=== PATIENT | male | born 1970 | race Hispanic/Latino ===

== ENCOUNTER 2019-01-09 04:59 | Emergency (ER) | payer SELFPAY ==
[~2019-01-09] VITALS: Ht 162.6 cm; Wt 65.8 kg
[2019-01-09 05:45] LABS: BASOPHILS # (AUTO) 0.1 (0.0-0.1); BASOPHILS % 0.7 % (0.0-1.0); EOSINOPHILS % 0.5 % (0.0-6.0); HEMATOCRIT 45.9 % (38.2-49.6); HEMOGLOBIN 15.7 g/dL (14.0-18.0); LYMPHOCYTES # (AUTO) 1.2 (1.0-3.2); LYMPHOCYTES % 13.4 % (18.0-39.1); MEAN CORPUSCULAR HEMOGLOBIN 30.9 pg (28-32); MEAN CORPUSCULAR HGB CONC 34.2 g/dL (31-35); MEAN CORPUSCULAR VOLUME 90.4 fL (81-99); MONOCYTES # (AUTO) 0.4 (0.2-0.8); MONOCYTES % 4.5 % (4.4-11.3); NEUTROPHILS # (AUTO) 6.9 (2.1-6.9); NEUTROPHILS % 80.6 % (38.7-80.0); PLATELET COUNT 263 x10e3/uL (140-360); RED BLOOD COUNT 5.08 x10e6/uL (4.3-5.7)
[2019-01-09 05:50] LABS: BILIRUBIN,URINE NEGATIVE (NEGATIVE); CLARITY,URINE CLEAR (CLEAR); COLOR,URINE YELLOW (YELLOW); KETONES,URINE NEGATIVE (NEGATIVE); LEUKOCYTE ESTERASE ,URINE NEGATIVE (NEGATIVE); NITRITE,URINE NEGATIVE (NEGATIVE); PROTEIN,URINE DIPSTICK NEGATIVE (NEGATIVE); URINE UROBILINOGEN 0.2 mg/dL (0.2 - 1)
[2019-01-09] MEDS ORDERED: ONDANSETRON HCL INJ 2MG/ML 2ML 2 MG/ML VIAL IV STA (05:50)
[2019-01-09] MEDS ORDERED: DICYCLOMINE HCL 20 MG/2 ML VIAL IM ONE (06:00)
[2019-01-09 06:11] LABS: ALANINE AMINOTRANSFERASE 35 IU/L (0-55); ALBUMIN 4.3 g/dL (3.5-5.0); ALBUMIN/GLOBULIN RATIO 1.2 (0.8-2.0); ALKALINE PHOSPHATASE 76 IU/L (40-150); ANION GAP 9.6 mmol/L (8-16); BLOOD UREA NITROGEN 19 mg/dL (7-26); BUN/CREATININE RATIO 19 (6-25); CALCIUM 9.6 mg/dL (8.4-10.2); CARBON DIOXIDE 27 mmol/L (22-29); CHLORIDE 102 mmol/L (98-107); CREATININE, SERUM 1.02 mg/dL (0.72-1.25); EST GLOMERULAR FILTRATION RATE > 60 ML/MIN (60-); GLUCOSE 138 mg/dL (74-118); POTASSIUM 3.6 mmol/L (3.5-5.1); SODIUM 135 mmol/L (136-145)
[2019-01-09 06:12] LABS: AMYLASE 86 U/L (25-125); LIPASE 31 U/L (8-78)
[2019-01-09 06:29] LABS: BACTERIA,URINE FEW /HPF; EPITHELIAL CELLS,URINE FEW /LPF; WBC,URINE (MAN) 0-5 /HPF (0-5)
--- NOTE | 2019-01-09 06:52 | Diagnostic Imaging Report ---
Acute Abdominal Series CPT CODE: 03324 INDICATION: Abdominal pain, nausea, vomiting, no BM for several days. COMPARISON: None. FINDINGS: Single view of the chest shows eventration of the right diaphragm. Lung rowland are clear. Cardiomediastinal silhouette is normal. Supine and erect views of the abdomen show unremarkable bowel gas pattern. Two distended small bowel loops in the left hemiabdomen measure up to 3.4 cm. No air-fluid levels. Large amount of stool throughout the colon. No pneumatosis. No free air. No calcifications over the renal shadows or along the expected course of the ureters. There are mild degenerative changes of the right hip. A bone island in the right superior pubic ramus measures 6 mm. IMPRESSION: 1. Distended small bowel loops suggestive of mild ileus. 2. Large amount of stool throughout the colon. Please correlate with clinical signs/symptoms of constipation. Signed by: Dr. Argenis Harris MD on 01/09/2019 6:49 AM
== END 2019-01-09 07:16 | disposition home or self-care (01) ==
LOC: ER 04:59
DX: R10.33 Periumbilical pain (principal); R11.2 Nausea with vomiting, unspecified; K59.00 Constipation, unspecified; I10 Essential (primary) hypertension
CPT/HCPCS: 36415; 74022; 80053; 81001; 82150; 83690; 85025; 99284; J0500; J2405